=== PATIENT | male | born 1935 | race African-American/Black ===

== ENCOUNTER 2017-03-27 11:41 | Observation (INO) | payer MEDICARE, MEDICAID ==
[2017-03-27 12:57] LABS: ALT (SGPT) 10 U/L (8-55); AST (SGOT) 10 U/L (5-34); Alkaline Phosphatase 45 U/L (40-150); Anion Gap 14 mmol/L (10-20); BUN (Urea Nitrogen) 29 mg/dL (8.4-25.7); Bilirubin, Total 0.3 mg/dL (0.2-1.2); Calc. Creatinine Clearance 0 mL/min (70-130); Calcium 8.4 mg/dL (7.8-10.44); Carbon Dioxide 23 mmol/L (23-31); Chloride 105 mmol/L (98-107); Estimated GFR-MDRD 38; Globulin 3.5 g/dL (2.4-3.5); Protein, Total 6.9 g/dL (5.8-8.1)
[2017-03-27 13:03] LABS: Troponin I Less than 0.010 ng/mL (< 0.028)
[2017-03-27 13:12] LABS: #Eosinphils 0.3 thou/uL (0.0-0.7); #Lymphocytes 1.4 thou/uL (1.20-3.40); #Monocytes 0.6 thou/uL (0.11-0.59); #Neutrophils 7.8 thou/uL (1.40-6.50); %Basophils 0.1 % (0.0-1.0); %Lymphocytes 14.2 % (21.0-51.0); %Monocytes 5.6 % (0.0-10.0); Hematocrit 36.1 % (42.0-52.0); Red Blood Cell (RBC) Count 4.05 mill/uL (4.70-6.10); White Blood Cell (WBC) Count 10.1 thou/uL (4.8-10.8)
--- NOTE | 2017-03-27 13:43 | CT ---
CT BRAIN NONCONTRAST: HISTORY: A 81-year-old male with right facial droop and right upper extremity and right lower extremity weakne ss. Dizziness. FINDINGS: There is no midline shift or any other mass effect. There is no evidence of acute intracranial hemor rhage, large cortical infarct, obstructive hydrocephalus, or extraaxial fluid collection. The calvar ium is intact. IMPRESSION: No acute intracranial findings. cristi [] POS: [facility]
[2017-03-27] MEDS ORDERED: Acetaminophen 325 MG TAB PO PRN (16:06)
[2017-03-27] MEDS ORDERED: Bisacodyl 5 MG TAB PO PRN (16:06)
[2017-03-27] MEDS ORDERED: Acetaminophen 650 MG Suppository PR PRN (16:06)
[2017-03-27] MEDS ORDERED: hydrALAZINE 20 MG/ML VIAL SLOW IVP PRN (16:06)
[2017-03-27] MEDS ORDERED: HumaLOG 300 UNITS/3 ML VIAL SC PRN (16:09)
[2017-03-27] MEDS ORDERED: Dextrose 5% in Water 1,000 ML IV PRN (16:09)
[2017-03-27] MEDS ORDERED: Dextrose 50% Abboject 50 ML SYRINGE SLOW IVP PRN (16:09)
[2017-03-27] MEDS ORDERED: predniSONE 20 MG TAB PO SCH (16:45)
--- NOTE | 2017-03-27 16:50 | HP ---
PRIMARY CARE PROVIDER: YEMI Mitchell CHIEF COMPLAINT: Weakness. HISTORY OF PRESENT ILLNESS: Mr. Paz is a pleasant 81-year-old gentleman who was seen at [facility] on 03/27/2017. Two days ago, Mr. Paz developed right-sided facial droop. He went to an urgent care clinic and wa s started on steroids. He took 1 dose of prednisone, but subsequently stopped taking the medication when he saw that his sugars were high. Today, he developed right upper and lower extremity weakness. He reports that it was of sudden onset . He reports that it lasted a few hours. By the time I saw Mr. Paz, he did not have any weakness . He denies any numbness or tingling. He denies any symptoms related to vision or hearing. He reports dribbling out of the right corner of his mouth. He denies any nausea or vomiting. REVIEW OF SYSTEMS: The following complete review of systems was negative, unless otherwise mentioned in the HPI or below: Constitutional: Weight loss or gain, sense of well-being, ability to conduct usual activities, exerc ise tolerance. Skin/Breast: Rash, itching, changes in hair growth or loss, nail changes, breast lumps, tenderness, swelling, nipple discharge. Eyes: Vision, double vision, tearing, blind spots, pain. ENT/Mouth: Headaches (location, time of onset, duration, precipitating factors), vertigo, lightheade dness, injury. Vision, double vision, tearing, blind spots, pain, nose bleeding, colds, obstruction, discharge, dental difficulties, gingival bleeding, dentures, neck stiffness, pain, tenderness, masses in thyroid or other areas. Cardiovascular: Precordial pain, substernal distress, palpitations, syncope, dyspnea on exertion, or thopnea, nocturnal paroxysmal dyspnea, edema, cyanosis, hypertension, heart murmurs, varicosities, ph lebitis, claudication. Respiratory: Pain, shortness of breath, wheezing, stridor, cough, hemoptysis, fever or night sweats Gastrointestinal: Poor appetite, dysphagia, indigestion, abdominal pain, heartburn, eructation, naus ea, vomiting, hematemesis, jaundice, constipation, or diarrhea, abnormal stools (myranda-colored, tarry, bloody, greasy, foul smelling), flatulence, hemorrhoids, recent changes in bowel habits. Genitourinary: Urgency, frequency, dysuria, nocturia, hematuria, polyuria, oliguria, unusual (or deja nge in) color of urine, stones, hesitancy, change in size of stream, dribbling, acute retention or in continence, libido, potency. Musculoskeletal: Pain, swelling, redness or heat of muscles or joints, limitation, of motion, muscul ar weakness, atrophy, cramps. Neurologic/Psychiatric: Convulsions, paralyses, tremor, incoordination, paraesthesias, difficulties with memory of speech, sensory or motor disturbances, or muscular coordination (ataxia, tremor), emot ional problems, anxiety, depression, previous psychiatric care, unusual perceptions, hallucinations. Allergy/Immunologic: Skin rash, anemia, bleeding tendency, polydipsia, polyuria, intolerance to heat or cold. PAST MEDICAL HISTORY: Significant for diabetes mellitus, hypertension, emphysema, dyslipidemia, bila teral cataracts, prostate cancer, status post resection and radiation therapy, chronic kidney disease . PAST SURGICAL HISTORY: Significant for bilateral knee replacements and hernia repair x2. FAMILY HISTORY: Significant for diabetes in his mother and multiple siblings. SOCIAL HISTORY: The patient is an ex-smoker. He denies alcohol use or recreational drug use. CODE STATUS: I discussed his status. He is DNR. ALLERGIES: CIPROFLOXACIN and SULFA. CURRENT MEDICATIONS: Albuterol 2 puffs as needed, aspirin 81 mg daily, glipizide 5 mg daily, lisinop ril 10 mg daily, montelukast 10 mg daily, simvastatin 20 mg daily, sildenafil 50 mg daily, betaxolol eyedrops, brimonidine eyedrops, latanoprost eyedrops, Lantus insulin 44 units subcutaneously 2 times a day, and Januvia 25 mg daily. PHYSICAL EXAMINATION: GENERAL: On examination, Mr. Olmstead is awake and alert, not in acute distress. VITAL SIGNS: Blood pressure is 129/77, pulse is 58, he is breathing at rate of 18, and saturating 95 % on room air. He is afebrile. EYES: No scleral icterus. No conjunctival pallor. ENT: Moist mucosal membranes, no oropharyngeal erythema or exudates. NECK: Supple, nontender, normal range of movement, trachea is midline. RESPIRATORY: Accessory muscles of breathing are not active. Chest wall movements are symmetric bila terally. LUNGS: Clear to auscultation without wheeze, rhonchi or crepitations. CARDIOVASCULAR: S1 and S2 are heard, regular. LUNGS: Peripheral pulses are palpable. No carotid bruit, no pericardial rub. ABDOMEN: Soft, nontender, bowel sounds heard, no hepatomegaly, no splenomegaly. NEUROLOGIC: He has right-sided Badillo's palsy. Otherwise, cranial nerves II-XII are intact. No focal motor or sensory deficits otherwise. Power is 5/5 in all 4 extremities. Deep tendon reflexes are 2 +, plantar reflexes are downgoing bilaterally. SKIN: No rashes or subcutaneous nodules. MUSCULOSKELETAL: Power is 5/5 in all 4 extremities. PSYCHIATRIC: Normal mood, normal affect, patient is oriented to person, place and time. LYMPHATIC: No cervical lymphadenopathy. IMAGING AND LABORATORY DATA: Mr. Paz's labs and investigations were reviewed. I reviewed his dago ctrocardiogram, which shows normal sinus rhythm, no ST changes to suggest an acute coronary syndrome. I also reviewed plain CT scan of the brain, which does not show any bleed or stroke. Laboratory investigation show normal white count, normocytic anemia with hemoglobin 11.4, normal plat elet count, normal electrolytes, elevated blood urea nitrogen of 29, elevated creatinine of 2.05, las t known creatinine 1.97 on 02/01/2017, unremarkable liver profile and a normal troponin I. ASSESSMENT AND PLAN: Mr. Paz is a pleasant 81-year-old gentleman who was seen at [facility] on 03/27/2017. His problem list includes: 1. Badillo's palsy: Mr. aPz will be started on prednisone and valacyclovir. We will monitor blood sugars and cover with insulin sliding scale. 2. Transient ischemic attack: Suspected. We will initiate workup, including MRI of the brain, garcia tid Dopplers, and 2D echocardiogram. We will consult Neurology. 3. Diabetes mellitus. Resume home medications, start Accu-Cheks and insulin sliding scale. 4. Dyslipidemia: Continue statins. 5. Hypertension: Continue home medications, monitor vital signs and titrate antihypertensives as ne eded. 6. Chronic kidney disease: Stable. 7. Deep venous thrombosis prophylaxis with heparin. Many thanks for allowing me to participate in your patient's care. Please feel free to contact me wi th any questions or concerns. LEVEL OF RISK: High. LEVEL OF COMPLEXITY: High.
--- NOTE | 2017-03-27 17:20 | ULT ---
CAROTID ARTERIAL DOPPLER ULTRASOUND: DATE: 03/27/17. COMPARISON: None. HISTORY: A 81-year-old male with TIA, right-sided facial droop, and right upper extremity/lower extremity weak ness, dizzy. TECHNIQUE: Multiplanar lau scale sonographic imaging of the arterial structures of the neck obtained with color flow and spectral analysis. FINDINGS: Antegrade blood flow and normal arterial waveforms are documented within the carotid and vertebral sy stem bilaterally. Mild eccentric plaque noted in the left internal carotid artery proximally. VESSEL PSV(CM/S) EDV(CM/S) Right CCA 53 11 Right ICA 42 8 Right ECA 60 8 Left CCA 89 14 Left ICA 34 8 Left ECA 74 9 ICA/CCA ratio 0.8 on the right and 0.4 on the left. IMPRESSION: No hemodynamically significant stenosis on the basis of sonographic velocity criteria. POS: [facility]
[2017-03-27] MEDS ORDERED: Artificial Tear Sol 15 ML BOT R EYE PRN (20:50)
--- NOTE | 2017-03-27 20:50 | MRI ---
MRI BRAIN: Date: 03-27-17 Provided Clinical History: TIA. FINDINGS: Comparison is made with CT examination performed earlier same date. The ventricular system is normal in size and morphology. There is no evidence for intracranial hemorrhage or mass effect. There is no evidence for restricted diffusion to suggest recent infarction. Punctate areas of FLAIR and T2 hyperi ntensity involving the cerebral white matter is seen compatible with chronic microvascular ischemic c hange. Appropriate flow voids are seen within the major intracranial vessels. The calvarial marrow si gnal and extracranial soft tissues demonstrate no acute abnormality. IMPRESSION: No evidence for an acute intracranial abnormality. POS: [facility]
[2017-03-27 21:45] VITALS: BMI 29.7
[2017-03-27] MEDS: Heparin 5,000 UNITS/ML VIAL SC SCH (21:53)
--- NOTE | 2017-03-28 00:12 | CON ---
DATE OF CONSULTATION: 03/27/2017 REASON FOR CONSULTATION: Right-sided facial droop. HISTORY OF PRESENT ILLNESS: Mr. Paz is a pleasant 81-year-old -[place] male who has been consulted for evaluation of right-sided facial droop. He reports that approximately 2-3 days ago, he has developed sudden onset of right-sided facial droop. He was having difficulty with smiling and r aising his eyebrows. He was having difficulty with swallowing and his speech. He had gone to urgent care clinic, where he was diagnosed with the Badillo's palsy. He was started on prednisone, after he t ook prednisone for 1 day, he noticed his blood sugar had gone up to 500 and at that point, he decided to discontinue medication. Today, he decided to present to the outpatient urgent care clinic, as he was getting weaker on his right side. He was asked to be presented to the [facility] to further evaluate for this new right-sided weakness. Currently denies any headache, chest pain, p alpitation, lightheadedness or dizziness, difficulty with balance or walking. PAST MEDICAL HISTORY: Significant for hypertension, diabetes, emphysema, dyslipidemia, prostate canc er, chronic kidney disease, and bilateral cataracts. PAST SURGICAL HISTORY: Significant for bilateral knee replacement, hernia repair, prostatectomy, and radiation therapy for prostate cancer. FAMILY HISTORY: Significant for diabetes. SOCIAL HISTORY: He is an ex-smoker. He denies alcohol use or illicit drug use. CURRENT MEDICATIONS: Please review MAR. ALLERGIES: Include CIPROFLOXACIN and SULFA DRUGS. REVIEW OF SYSTEMS: As mentioned in the HPI, otherwise negative. PHYSICAL EXAMINATION: VITAL SIGNS: Blood pressure of 197/73, pulse of 63, temperature of 99.6, respiration of 16, O2 sats of 93% on room air. GENERAL: Well-developed, well-nourished -[place]ian male in no apparent distress. RESPIRATORY: Clear to auscultation bilaterally. CARDIOVASCULAR: Regular rate and rhythm. NEUROLOGIC: Mental status: The patient is awake, alert, oriented x3. Speech and language mildly dy sarthric speech noted. Cranial nerves: Pupils are 3 mm and reactive. Visual agarwal are intact. Ex traocular muscle movements are intact. No nystagmus noted. No ptosis noted. There is a right lower motor neuron type facial weakness noted. Tongue and uvula are midline. Motor exam showed normal to ne and bulk with 5/5 strength in upper and lower extremities. Sensory: Sensation is intact and symm etric. Deep tendon reflexes 2+ reflexes in both upper and lower extremities. Babinski: Plantar res ponses flexion bilaterally. Coordination intact to [id number] and finger tapping bilaterally . LABORATORY DATA: Reviewed, which included CBC and CMP, which is significant for hemoglobin 11.4, hem atocrit 36.1. BUN of 29, creatinine of 2.05, but otherwise unremarkable. IMAGING STUDIES: MRI brain without contrast was reviewed, which showed no acute intracranial abnorma lity. IMPRESSION: 1. Badillo's palsy. 2. Right-sided facial weakness, due to #1. 3. Dysarthria, due to #1. ASSESSMENT AND PLAN: Mr. Paz is a pleasant 81-year-old -[place] male who presented with t he acute onset of right-sided facial droop that has been ongoing for the past 3-4 days. His exam is suggestive of right-sided Badillo's palsy. I have reviewed his MRI brain, which showed no acute intracr anial abnormality. At this time, I would recommend starting patient on Valtrex 1 gram 3 times a day for 7 days. Patient can be given Medrol Dosepak. I have also started patient on Artificial Tears to be put in right eye every 2-3 hours. I informed the patient that he needs to put this drops at home on a regular basis for at least 1-2 weeks to avoid any injury to the eye. Patient is okay to be dis charged to home from my standpoint. Thank you for consultation.
[2017-03-28 05:46] LABS: Anion Gap 10 mmol/L (10-20); BUN (Urea Nitrogen) 25 mg/dL (8.4-25.7); Calc. Creatinine Clearance 51 mL/min (70-130); Calcium 8.8 mg/dL (7.8-10.44); Carbon Dioxide 22 mmol/L (23-31); Chloride 107 mmol/L (98-107); Cholesterol 113 mg/dl (< 200 Desired); Estimated GFR-MDRD 55; LDL Cholesterol, Calculated 49 mg/dL
[2017-03-28 05:47] LABS: #Eosinphils 0.8 thou/uL (0.0-0.7); #Lymphocytes 1.9 thou/uL (1.20-3.40); #Monocytes 0.6 thou/uL (0.11-0.59); #Neutrophils 8.3 thou/uL (1.40-6.50); %Basophils 0.2 % (0.0-1.0); %Eosinophils 6.7 % (0.0-10.0); %Lymphocytes 16.6 % (21.0-51.0); Hematocrit 34.5 % (42.0-52.0); Mean Platelet Volume 9.7 fL (7.4-10.4); White Blood Cell (WBC) Count 11.6 thou/uL (4.8-10.8)
[2017-03-28] MEDS ORDERED: Enoxaparin Sodium 40 MG/0.4 ML SYRINGE SC SCH (09:00)
[2017-03-28] MEDS ORDERED: Aspirin 81 mg Enteric Coated Tablet PO SCH (09:00)
[2017-03-28] MEDS ORDERED: predniSONE 20 MG TAB PO SCH (09:00)
[2017-03-28] MEDS: Heparin 5,000 UNITS/ML VIAL SC SCH (09:47)
--- NOTE | 2017-03-28 10:58 | DIS ---
DATE OF ADMISSION: 03/27/2017 DATE OF DISCHARGE: 03/28/2017 PRIMARY CARE PROVIDER: YEMI Mitchell DISCHARGE DIAGNOSIS: Badillo's palsy. CONDITION OF PATIENT ON THE DAY OF DISCHARGE: Stable. I assessed Mr. Paz on the day of discharge. He denies any chest pain or shortness of breath. PHYSICAL EXAMINATION: VITAL SIGNS: Stable. S1 and S2 are heard, regular. LUNGS: Clear to auscultation bilaterally. NEUROLOGIC: Significant only for right-sided Badillo's palsy. DISCHARGE MEDICATIONS: Ventolin nebulizers q.6 hours p.r.n., Artificial Tears 2 drops to right eye 4 times a day as needed, aspirin 81 mg daily, brimonidine eyedrops, Symbicort 160/4.5 two puffs 2 time s a day, TriCor 145 mg daily, glipizide 5 mg 2 times a day, Lantus insulin 30 units 2 times a day, la tanoprost eyedrops, lisinopril 20 mg daily, metformin 1000 mg 2 times a day, Medrol Dosepak, Singulai r 10 mg daily, simvastatin 20 mg every evening, Januvia 100 mg daily, tamsulosin 0.4 mg daily. HOSPITAL COURSE: Mr. Paz is a pleasant 81-year-old gentleman who was admitted to [facility] on observation status on 03/27/2017 for Badillo's palsy as well as suspected transient ischemic attack. He was seen by Neurology Service. It was felt that his presentation was secondary to Badillo's palsy. He has been started on valacyclovir and Medrol Dosepak and is being discharged ever in a stable condition. MRI of the brain did not show any significant intracranial lesions. Carotid Dopplers did not reveal any hemodynamically significant stenosis. He also had a 2D echocardiogram, result is pending at this time. He is advised to follow up with his primary care provider for report. He is being discharged home in a stable condition. He is advised to follow up with his primary care provider in 3-5 days' time. Many thanks for allowing me to participate in your patient's care. Please feel free to contact me wi th any questions or concerns. LABORATORY DATA: On the day of discharge, he had sodium of 135, potassium 4.0, creatinine 1.48, trig lycerides elevated at 188, cholesterol 113, LDL cholesterol 49, and cholesterol 26. White count is 1 1,600, hemoglobin 11.2, and platelet count is 242,000. I will leave it to the discretion of the primary care provider regarding alterations to his dyslipide mai medications. DISCHARGE DESTINATION: Home.
[2017-03-28 11:28] VITALS: BP 157/88; TEMP 98.6
[2017-03-28] MEDS ORDERED: Albuterol Sulfate 2.5 mg/3 ml Neb NEB PRN (11:30)
[2017-03-28] MEDS ORDERED: Brimonidine Tartrate 0.2% Ophth Soln 5 ml Bottle EA EYE SCH (15:00)
[2017-03-28] MEDS ORDERED: metFORMIN XR 500 MG TAB PO SCH (17:00)
[2017-03-28] MEDS ORDERED: Mometasone/Formoterol 120 PUFF INHALER INH SCH (18:30)
[2017-03-28] MEDS ORDERED: Insulin Detemir 100 UNITS/ML 30 UNITS in Pre-Filled Syringe 1 EACH SC SCH (21:00)
[2017-03-28] MEDS ORDERED: Non-Formulary Item 1 EACH (Insulin Glargine,Hum.Rec.Anlog 30 UNIT) SQ SCH (21:00)
[2017-03-28] MEDS ORDERED: Latanoprost 0.005% Ophth Soln 2.5 ml Bottle EA EYE SCH (21:00)
[2017-03-28] MEDS ORDERED: Atorvastatin Calcium 10 MG TAB PO SCH (21:00)
[2017-03-29] MEDS ORDERED: Alogliptin 25 MG TAB PO SCH (09:00)
[2017-03-29] MEDS ORDERED: Fenofibrate Nanocrystallized 145 MG TAB PO SCH (09:00)
[2017-03-29] MEDS ORDERED: Insulin Detemir 100 UNITS/ML 30 UNITS in Pre-Filled Syringe 1 EACH SC SCH (09:00)
[2017-03-29] MEDS ORDERED: Tamsulosin HCl 0.4 MG CAP PO SCH (09:00)
[2017-03-29] MEDS ORDERED: Lisinopril 20 MG TAB PO SCH (09:00)
[2017-03-29] MEDS ORDERED: Montelukast Sodium 10 mg Tablet PO SCH (21:00)
== END 2017-03-28 12:22 | disposition home or self-care (01) ==
LOC: ERS 11:41 → ERHOLD 15:30 → 2SE 18:30
PROVIDERS: ADMIT Internal Medicine; ATTEND Internal Medicine
DX: G51.0 Bell's palsy (principal); I12.9 Hypertensive chronic kidney disease with stage 1 through stage 4 chronic kidney disease, or unspecified chronic kidney disease; E11.22 Type 2 diabetes mellitus with diabetic chronic kidney disease; N18.9 Chronic kidney disease, unspecified; M19.90 Unspecified osteoarthritis, unspecified site; J43.9 Emphysema, unspecified; Z85.46 Personal history of malignant neoplasm of prostate; Z92.3 Personal history of irradiation; Z88.1 Allergy status to other antibiotic agents; Z88.2 Allergy status to sulfonamides; Z96.653 Presence of artificial knee joint, bilateral; Z98.890 Other specified postprocedural states; Z79.4 Long term (current) use of insulin; Z79.82 Long term (current) use of aspirin; Z79.899 Other long term (current) drug therapy
CPT/HCPCS: 70450; 70551; 80048; 80053; 80061; 82553; 82962 ×2; 84484; 85025 ×2; 93005; 93306; 93880; 99285; G0378; 36415; 36416; A4216; J1644; J7506

== ENCOUNTER 2020-06-10 10:45 | Outpatient (CLI) | payer MEDICARE, MEDICAID | END 2020-06-10 10:46 | disposition home or self-care (01) | LOC: RAD-FRANK 10:45 | PROVIDERS: ATTEND Nurse Practitioner Family | DX: D72.829 Elevated white blood cell count, unspecified (principal) | CPT/HCPCS: 71046 ==